=== PATIENT | female | born 1960 | race Caucasian/White ===

== ENCOUNTER → 2021-05-26 | Outpatient (CLI) | payer BC ==
[2021-05-26 15:27] VITALS: BP 165/81; PULSE 89; RESP 16; TEMP 98.6; BMI 27.3
--- NOTE | 2021-05-26 15:46 | P.BASOAP ---
Subjective Progress Note Date: 05/26/21 Principal diagnosis: Morbid obesity Patient known to our service. She has not been seen for many years. Her lap band was placed and 2007. Her heaviest weight was 254 prior to surgery and she had lost down to a weight of 136. Current weight 164. Patient says she has indigestion and gas pain with radiation to the right shoulder at times with meals. Happening more frequently. She is interested in band removal at this point. No recent workup. Does have heartburn. Objective - Vital Signs Vital signs: Vital Signs Temp 98.6 F 05/26/21 15:22 Pulse 89 05/26/21 15:22 Resp 16 05/26/21 15:22 BP 165/81 05/26/21 15:22 Pulse Ox Intake & Output 05/25/21 05/26/21 05/26/21 18:59 06:59 18:59 Weight 74.389 kg - Exam Abdomen: Soft, nontender, nondistended Assessment/Plan (1) Morbid obesity Narrative/Plan: Patient interested in band removal. Will empty band at this time. Will order u pper GI/esophagram to rule out abnormalities at the band site. Following that we'll discuss with patient's scheduling a band removal. The patient's lap band port was palpated. The site was aseptically prepped. The Mclean needle was advanced into the port. A total of 4 ml of fluid was removed. No further fluid seen band is empty. Pressure was held and a sterile dressing was applied. Plan: Date: 05/26/21 Initial Weight: 115.212 kg Initial BMI: 42.3 Current Weight: 74.389 kg Current BMI: 27.3 Type of Surgery: Adjustable Gastric Banding Total Volume in Band: 0 Previous Volume: Volume Removed: 4 Volume Added: Band Size:
== END | disposition home or self-care (01) ==
LOC: BARWHC3 15:11
PROVIDERS: ATTEND Surgery
DX: E66.01 Morbid (severe) obesity due to excess calories (principal); Z68.27 Body mass index [BMI] 27.0-27.9, adult
CPT/HCPCS: 99212

== ENCOUNTER → 2021-06-05 | Outpatient (CLI) | payer BC ==
--- NOTE | 2021-06-05 11:21 | FL ---
EXAMINATION TYPE: FL barium swallow DATE OF EXAM: 06/05/2021 COMPARISON: None HISTORY: Dysphasia TECHNIQUE: Single contrast technique with thin barium was utilized to evaluate the esophagus and the level of the lap band. FINDINGS: Esophagus dilation normal caliber is normal contour to the gastroesophageal junction. The c ontrast passed through the lap band without hesitancy. A lap band position appears normal. No prolaps e is identified. Fluoroscopy time: 35 seconds Images: 8 IMPRESSION: 1. Normal esophagram with lap band. 2. No hesitancy passing through the level of the lap band.
== END | disposition home or self-care (01) ==
LOC: RADUSWWP 09:40
PROVIDERS: ATTEND Surgery
DX: R13.10 Dysphagia, unspecified (principal)
CPT/HCPCS: 74220

== ENCOUNTER 2021-09-14 11:28 | Day surgery (SDC) | payer BC ==
[2021-09-10 14:08] VITALS: BMI 28.3
[~2021-09-14 11:28] MED LIST: DEXAMETHASONE SOD PHOSPHATE 4 MG/ML 1 ML VIAL IV ONE; HYDROmorphone 0.5 MG/0.5 ML SYRINGE IVP PRN; LACTATED RINGERS 1,000 ML IV SCH; MIDAZOLAM 2 MG/2 ML VIAL IV PRN; ONDANSETRON 4 MG/2 ML VIAL IVP ONE; SCOPOLAMINE 1.5MG/72HR PATCH TRANSDERM ONE
--- NOTE | 2021-09-14 14:03 | P.GSHP ---
History of Present Illness H&P Date: 09/14/21 Chief Complaint: Lap band intolerance Patient here today for lap band removal. Patient with frequent reflux and vomiting. Some abdominal pain as well. Symptoms did improve after emptying her band recently. Patient is interested in band removal. Past Medical History Past Medical History: Hypertension Additional Past Medical History / Comment(s): Varicose veins. History of Any Multi-Drug Resistant Organisms: None Reported Past Surgical History: Bariatric Surgery, Cholecystectomy, Hysterectomy Additional Past Surgical History / Comment(s): Lap band 2007. Past Anesthesia/Blood Transfusion Reactions: No Reported Reaction Past Psychological History: No Psychological Hx Reported Smoking Status: Never smoker Past Alcohol Use History: Occasional Past Drug Use History: None Reported - Past Family History Father Family Medical History: Deep Vein Thrombosis (DVT) Medications and Allergies Home Medications Medication Instructions Recorded Confirmed Type Quinapril HCl [Accupril] 20 mg PO QAM 05/26/21 09/14/21 History amLODIPine [Norvasc] 5 mg PO QAM 05/26/21 09/14/21 History Allergies Allergy/AdvReac Type Severity Reaction Status Date / Time ibuprofen [From Motrin] Allergy Rash/Hives Verified 09/14/21 11:44 meperidine [From Demerol] AdvReac Nausea Verified 09/14/21 11:44 Surgical - Exam Vital Signs Temp Pulse Resp BP Pulse Ox 97.8 F 85 16 166/81 98 09/14/21 11:46 09/14/21 11:46 09/14/21 11:46 09/14/21 11:46 09/14/21 11:46 abdomen Physical exam: General: Well-developed, well-nourished HEENT: Normocephalic, sclerae nonicteric Abdomen: Nontender, nondistended Extremities: No edema Neuro: Alert and oriented Assessment and Plan (1) GERD (gastroesophageal reflux disease) Narrative/Plan: Proceed with laparoscopic lap band removal at this time. The risks of bleeding, infection, stenosis, stricture, leak, abscess, fistula formation, peritonitis, weight gain, reflux, vomiting, conversion to an open procedure, CA, PE, DVT, and were discussed. The patient understands and wishes to proceed. Current Visit: Yes Status: Acute Code(s): K21.9 - GASTRO-ESOPHAGEAL REFLUX DISEASE WITHOUT ESOPHAGITIS SNOMED Code(s): 672798662
[2021-09-14] MEDS ORDERED: MIDAZOLAM 2 MG/2 ML VIAL ONE (14:12)
[2021-09-14] MEDS ORDERED: LIDOCAINE 1% INJ 10MG/ML (20 ML MDV) ONE (14:12)
[2021-09-14] MEDS ORDERED: PROPOFOL 10 MG/ML 20 ML VIAL IV ONE (14:12)
[2021-09-14] MEDS ORDERED: NEOSTIGMINE 1 MG/ML 10 ML VIAL ONE (14:12)
[2021-09-14] MEDS ORDERED: SUCCINYLCHOLINE CHLORIDE 100 MG/5 ML SYR IV ONE (14:12)
[2021-09-14] MEDS ORDERED: GLYCOPYRROLATE 0.2 MG/ML 2 ML VIAL ONE (14:12)
[2021-09-14] MEDS ORDERED: ROCURONIUM 10 MG/ML (5 ML VIAL) IV ONE (14:12)
[2021-09-14] MEDS ORDERED: fentaNYL (PF) 50 MCG/ML 2 ML AMP ONE (14:12)
[2021-09-14] MEDS ORDERED: KETAMINE 10 MG/ML 20 ML VIAL ONE (14:12)
[2021-09-14] MEDS ORDERED: BUPIVACAIN-EPI 0.25%-1:200,000 30 ML VIAL SQ ONE ×2 (14:39)
[2021-09-14] MEDS ORDERED: LACTATED RINGERS 1,000 ML IV ONE ×3 (14:55→18:01)
[2021-09-14] MEDS ORDERED: NALOXONE 0.4 MG/ML 1 ML VIAL IV PRN (15:15)
[2021-09-14] MEDS ORDERED: HYDROcodone/APAP 5-325MG 1 EACH TAB PO PRN (15:15)
--- NOTE | 2021-09-14 15:16 | P.OP ---
Date of Procedure: 09/14/21 Procedure(s) Performed: PREOPERATIVE DIAGNOSIS: Band intolerance/abdominal pain POSTOPERATIVE DIAGNOSIS: Same PROCEDURE: Laparoscopic lap band removal SURGEON: Gilberto EBL: Minimal ANESTHESIA: General COMPLICATIONS: None OPERATIVE PROCEDURE: The patient was brought and placed on the operating room table in the supine position. The patient was placed under general anesthesia at that time. The patient was then placed in lithotomy. The abdomen was prepped and draped in the usual sterile fashion. The previous port incision was localized and then incised using a scalpel. The port was easily excised using electrocautery. Entrance into the perineal cavity occurred using a 5 mm optical trocar through the old trocar entrance site. Insufflation took place to 15 mmHg. A right subxiphoid 5 mm trocar was placed. This was then removed and the medium Olimpia hook was used to elevate the left lobe of the liver anteriorly. An additional 5 mm trocar was placed under direct visualization in the left lateral upper quadrant. The original 5 mm trocar was switched to a 15 mm trocar. A additional 5 mm trocar was placed in the right upper quadrant under direct dilatation. There were adhesions to the band in the buccal that were lysed using both the LigaSure and electrocautery. The band was then cut using the laparoscopic alen. The band was then removed easily in 2 portions through the 15 mm trocar site. The stomach itself was inspected and revealed no evidence of erosion or prolapse. The trochars were removed. The fascia at the 15 mm site was closed using a [id number] 0 Vicryl stitch. The subcutaneous tissues at the port site was closed using a 3-0 Vicryl suture. The skin at all 4 incision sites were closed using 4-0 Monocryl sutures. Skin was then applied. DISPOSITION: Stable to recovery room
[2021-09-14 15:40] VITALS: TEMP 97
[2021-09-14] MEDS ORDERED: HYDROmorphone 0.5 MG/0.5 ML SYRINGE IVP ONE ×2 (15:48→16:04)
[2021-09-14 16:06] VITALS: RESP 16
[2021-09-14 18:13] VITALS: BP 132/73; PULSE 71
== END 2021-09-14 18:55 | disposition home or self-care (01) ==
LOC: OR 11:28
PROVIDERS: ATTEND Surgery
DX: R10.9 Unspecified abdominal pain (principal); I10 Essential (primary) hypertension; K21.00 Gastro-esophageal reflux disease with esophagitis, without bleeding; Z88.5 Allergy status to narcotic agent; Z88.6 Allergy status to analgesic agent; Z90.49 Acquired absence of other specified parts of digestive tract; Z98.84 Bariatric surgery status
CPT/HCPCS: 44180; J2250; J1100; J2710; J0690; J2405; J2001; J3010; J0330; J2704; J1170

== ENCOUNTER → 2021-09-22 | Outpatient (CLI) | payer BC ==
[2021-09-22 15:58] VITALS: BP 190/92; PULSE 84; RESP 18; TEMP 98.5; BMI 29.0
--- NOTE | 2021-09-22 16:43 | P.BASOAP ---
Subjective Progress Note Date: 09/22/21 Principal diagnosis: dysphagia patient returns after lap band removal. Doing well at this time. Pain has resolved.no dysphagia or heartburn. No vomiting. Objective - Vital Signs Vital signs: Vital Signs Temp 98.5 F 09/22/21 15:44 Pulse 84 09/22/21 15:44 Resp 18 09/22/21 15:44 BP 190/92 09/22/21 15:44 Pulse Ox Intake & Output 09/21/21 09/22/21 09/22/21 18:59 06:59 18:59 Weight 79.152 kg - Exam abdomen: Soft, nondistended, incisions clean and dry Assessment/Plan (1) Morbid obesity Narrative/Plan: patient doing well after band removal. Gradually resume normal activities. Follow-up as needed. Plan: Date: 09/22/21 Initial Weight: 115.212 kg Initial BMI: 42.3 Current Weight: 79.152 kg Current BMI: 29.0 Type of Surgery: Total Volume in Band: 0 Previous Volume: Volume Removed: Volume Added: Band Size:
== END ==
LOC: BARWHC3 14:59
PROVIDERS: ATTEND Surgery
DX: E66.01 Morbid (severe) obesity due to excess calories (principal); Z98.84 Bariatric surgery status; Z68.29 Body mass index [BMI] 29.0-29.9, adult; Z88.5 Allergy status to narcotic agent; Z88.6 Allergy status to analgesic agent
CPT/HCPCS: 99211